=== PATIENT | female | born 1965 | race Caucasian/White ===

== ENCOUNTER → 2016-11-02 | Outpatient (CLI) | payer OTHER ==
--- NOTE | 2016-09-27 10:35 | NUR ---
PMH, allergies, meds reviewed and updated. Preop and DOS instructions given including handouts of meds to stop before surgery, shower instructions and CHG, ortho consent, letter from Dr Donaldson, Surgical Services pamphlet and my contact information. Pt is using crutches today and is accompanied by her s/o, Duc.
--- NOTE | 2016-09-28 15:30 | NUR ---
Cancel Surgery Per VM patient wishes to cancel surgery at this time. No reason given. OR information security risk analyst notified.
[~2016-11-02] MED LIST: ACYC400T PO; LISI10TA7 PO; OXYB10TA PO; OXYC-46 PO; VARE1TAB22 PO; VENL150C42 PO
== END ==
LOC: SCU 08:00 → EDSTATUS 12:45
PROVIDERS: ATTEND Orthopaedic Surgery
DX: Z53.9 Procedure and treatment not carried out, unspecified reason (principal)